=== PATIENT | male | born 1935 | race Caucasian/White ===

== ENCOUNTER → 2016-09-17 | Outpatient (CLI) | payer MEDICARE, OTHER | LOC: MW.CHIM 08:00 | PROVIDERS: ATTEND Internal Medicine | DX: F03.90 Unspecified dementia, unspecified severity, without behavioral disturbance, psychotic disturbance, mood disturbance, and anxiety (principal) | CPT/HCPCS: G0463 ==

== ENCOUNTER → 2016-11-23 | Outpatient (CLI) | payer MEDICARE, OTHER | LOC: MW.CHORTHO 08:00 | PROVIDERS: ATTEND Orthopaedic Surgery | DX: M17.0 Bilateral primary osteoarthritis of knee (principal) | CPT/HCPCS: 20610-50; G0463; J1040 ==

== ENCOUNTER 2020-07-09 14:15 | Emergency (ER) | payer OTHER, MEDICARE ==
[2020-07-09] MEDS ORDERED: Sodium Chloride 0.9% 10 ML Syringe FLUSH PRN (14:23)
[2020-07-09] MEDS ORDERED: Sodium Chloride 0.9% 2.5 ML Syringe FLUSH PRN (14:23)
--- NOTE | 2020-07-09 14:45 | EDM.PDOC ---
ED HPI GENERAL MEDICAL PROBLEM - General Chief Complaint: General Stated Complaint: [facility] Time Seen by Provider: 07/09/20 14:22 Source of Information: Reports: Patient, Family, Old Records History Limitations: Reports: No Limitations - History of Present Illness INITIAL COMMENTS - FREE TEXT/NARRATIVE: This is a very pleasant 84-year-old gentleman with a past medical history of dementia, hyperlipidemia, osteoarthritis, presenting with concern for fatigue and disorientation. He presents with his daughter, directed here by the [facility]. Daughter is concerned that he seems more fatigued than usual for the past 1 to 2 weeks. He does have a history of dementia but the daughter states he seems more confused compared to baseline. She also states he is not been eating or drinking very much and has been sleeping much more than usual. She states that he does not seem to be acting like himself and seems much more tired than he usually is. Daughter denies any history of fever, nausea, vomiting, diarrhea, hematemesis, rectal bleeding, chest pain, shortness of breath, weight loss, night sweats, or history of cancer. No recent medication changes. No history of head trauma. Denies dysuria, urinary frequency, or hematuria. ROS: A 10-point review of systems was negative, except as noted in the HPI (or in the ROS section of this note). Past medical history: Reviewed, no additional pertinent history. Surgical history: Reviewed in system, no additional pertinent history. Social history: Reviewed in system, no additional pertinent history. Family history: Reviewed in system, no additional pertinent history. PHYSICAL EXAM Vital signs reviewed. Nursing notes reviewed. Constitutional: Awake, alert, non-distressed. Head: Normocephalic, atraumatic. Eyes: Pupils 3 mm bilaterally, EOMI, conjunctiva normal, no discharge, no scleral icterus. Ears, Nose, Throat: External ears and nose normal, moist oral mucosa. Cardiovascular: 2+ radial pulses bilaterally, capillary refill less than 2 seconds. Pulmonary: normal work of breathing, no accessory muscle use. Abdomen/GI: Soft, nontender, nondistended, no guarding or rigidity, no masses. Back: Unremarkable, nontender, no CVA tenderness. Musculoskeletal: No deformities. Integumentary: Appropriate color for ethnicity, warm, dry, no pallor or jaundice, no rash. Neurologic: Alert, oriented to person and place but impaired recent memory, normal speech, no facial droop, moving all extremities well. Psychiatric: Appropriate mood and affect. This patient was seen and evaluated during the 2019 SARS-CoV-2 novel coronavirus pandemic period. Community viral transmission is ongoing at time of this encounter and the emergency department is operating under pandemic response procedures. - Related Data Allergies Allergy/AdvReac Type Severity Reaction Status Date / Time ibuprofen Allergy Cannot Verified 07/09/20 14:31 Remember Penicillins Allergy Cannot Verified 07/09/20 14:31 Remember Sulfa (Sulfonamide Allergy Cannot Verified 07/09/20 14:31 Antibiotics) Remember Home Meds: Home Meds Aspirin [Aspirin EC] 81 mg PO DAILY 07/09/20 [History] Cefpodoxime [Vantin] 200 mg PO BID 7 Days #14 tab 07/09/20 [Rx] Cholecalciferol (Vitamin D3) [Vitamin D3] 50 mcg PO DAILY 07/09/20 [History] Donepezil HCl 10 mg PO BEDTIME 07/09/20 [History] Doxazosin [Doxazosin Mesylate] 4 mg PO QPM 07/09/20 [History] Doxycycline Hyclate 100 mg PO BID 7 Days #14 tablet. 07/09/20 [Rx] Latanoprost [Xalatan] 1 drop EYEBOTH BEDTIME 07/09/20 [History] Oxybutynin 2.5 mg PO TID 07/09/20 [History] Vitamin B Complex 1 each PO DAILY 07/09/20 [History] atorvaSTATin [Lipitor] 20 mg PO BEDTIME 07/09/20 [History] ED ROS GENERAL - Review of Systems Review Of Systems: See Below ED EXAM, GENERAL - Physical Exam Exam: See Below #1 Interpretation EKG Interpretation Comments: 12-Lead ECG Interpretation Acquired: 2:43 PM Rhythm: Sinus rhythm Rate: 80 bpm [place]: Normal Intervals: Normal Ectopy: None RV Strain: No obvious RV strain pattern. ST Segments/T-Waves: No notable changes Acute Ischemic Changes: None apparent Interpretation: No STEMI. No prior ECG on file for comparison Course - Vital Signs Text/Narrative:: 84-year-old gentleman presenting with concern for fatigue, poor oral intake, and worsening confusion compared to baseline for 1 to 2 weeks. Differential diagnosis includes but is not limited to: Anemia, electrolyte disturbance, volume depletion, sepsis, pneumonia, subdural hematoma, intracranial hemorrhage, subacute myocardial infarction, thyroid disease, renal insufficiency, and many others. Patient is alert but mildly disoriented to event, mildly impaired recent memory. He displays no gross neurologic deficits at this point. We are planning to obtain labs, twelve-lead EKG, a chest x-ray series, and a noncontrast head CT. At this point he seems hemodynamically stable and looks nontoxic. Twelve-lead EKG looks nonischemic, normal intervals, no ectopy. Head CT negative. CBC shows mild normocytic anemia at 12.6. Metabolic panel shows mild hypokalemia of 3.2. Renal function is normal. Calcium slightly low at 8.2. Total bilirubin is mildly elevated at 1.8, which is actually better than pre vious levels. Troponin is negative. TSH is within normal limits. Albumin slightly low at 3.1. COVID-19 testing is positive. 2 view x-ray series shows a questionable airspace opacity in the peripheral right upper lobe likely representing an infiltrate, otherwise hyperinflation and chronic interstitial changes. Patient does not look systemically ill or toxic or septic. His oxygen levels are normal and he has no tachypnea, shortness of breath, or evidence of respiratory compromise. He does not look dehydrated or volume depleted, his head CT imaging is negative. There is no objective evidence of thyroid disease or myocardial ischemia. I believe his presentation is due to COVID-19 infection. There is some concern for possible superimposed pneumonia given his x-ray findings. I did discuss with the daughter treating with antibiotics, given his advanced age, history of dementia, and the fact that he lives in an assisted living facility. She is in agreement with the plan to conservatively treat with antibiotics. We will have him follow-up with his primary medical doctor in about a week for reevaluation including repeat potassium testing. We will give the daughter and the patient a handout with food suggestions to help address the hypokalemia. Plan: Patient is stable to discharge home with outpatient primary care clinic follow-up. Strict emergency department return precautions were provided, patient's daughter/power of criminal attorney indicated understanding. All questions were answered prior to departure. Discharged in good condition. Last Recorded V/S: Last Vital Signs Temp 36.9 C 07/09/20 14:44 Pulse 79 07/09/20 15:50 Resp 16 07/09/20 15:50 BP 121/80 07/09/20 15:50 Pulse Ox 97 07/09/20 15:50 - Orders/Labs/Meds Orders: Active Orders 24 hr Category Date Time Status EKG Documentation Completion [RC] STAT Care 07/09/20 14:23 Active Pulse Oximetry [RC] ASDIRECTED Care 07/09/20 14:23 Active Sodium Chloride 0.9% [Saline Flush] Med 07/09/20 14:23 Active 10 ml FLUSH ASDIRECTED PRN Sodium Chloride 0.9% [Saline Flush] Med 07/09/20 14:23 Active 2.5 ml FLUSH ASDIRECTED PRN Saline Lock Insert [OM.PC] Stat Oth 07/09/20 14:23 Ordered Medication Orders Sodium Chloride (Saline Flush) 10 ml FLUSH ASDIRECTED PRN PRN Reason: Keep Vein Open Sodium Chloride (Saline Flush) 2.5 ml FLUSH ASDIRECTED PRN PRN Reason: Keep Vein Open Labs: Laboratory Tests 07/09/20 07/09/20 07/09/20 Range/Units 14:50 14:55 14:55 WBC 6.73 (4.0-11.0) K/uL RBC 3.90 L (4.50-5.90) M/uL Hgb 12.6 L (13.0-17.0) g/dL Hct 37.0 L (38.0-50.0) % MCV 94.9 (80.0-98.0) fL MCH 32.3 H (27.0-32.0) pg MCHC 34.1 (31.0-37.0) g/dL RDW Std Deviation 39.7 (28.0-62.0) fl RDW Coeff of Jay 12 (11.0-15.0) % Plt Count 186 (150-400) K/uL MPV 10.10 (7.40-12.00) fL Neut % (Auto) 72.0 (48.0-80.0) % Lymph % (Auto) 17.1 (16.0-40.0) % Hunt % (Auto) 10.1 (0.0-15.0) % Eos % (Auto) 0.7 (0.0-7.0) % Baso % (Auto) 0.1 (0.0-1.5) % Neut # (Auto) 4.8 (1.4-5.7) K/uL Lymph # (Auto) 1.2 (0.6-2.4) K/uL Hunt # (Auto) 0.7 (0.0-0.8) K/uL Eos # (Auto) 0.1 (0.0-0.7) K/uL Baso # (Auto) 0.0 (0.0-0.1) K/uL Nucleated RBC % 0.0 /100WBC Nucleated RBCs # 0 K/uL Sodium 142 (136-148) mmol/L Potassium 3.2 L (3.5-5.1) mmol/L Chloride 106 (98-107) mmol/L Carbon Dioxide 26.8 (21.0-32.0) mmol/L BUN 16 (7.0-18.0) mg/dL Creatinine 0.8 (0.8-1.3) mg/dL Est Cr Clr Drug Dosing 75.44 mL/min Estimated GFR (MDRD) > 60.0 ml/min Glucose 125 H (74-106) mg/dL Calcium 8.2 L (8.5-10.1) mg/dL Total Bilirubin 1.8 H (0.2-1.0) mg/dL AST 18 (15-37) IU/L ALT 16 (14-63) IU/L Alkaline Phosphatase 108 (46-116) U/L Troponin I < 0.050 (0.000-0.056) ng/mL Total Protein 6.0 L (6.4-8.2) g/dL Albumin 3.1 L (3.4-5.0) g/dL Globulin 2.9 (2.6-4.0) g/dL Albumin/Globulin Ratio 1.1 (0.9-1.6) TSH 3rd Generation 1.01 (0.36-3.74) uIU/mL SARS-CoV-2 RNA (EZEQUIEL) POSITIVE H (NEGATIVE) Meds: Medications Generic Name Dose Route Start Last Admin Trade Name Freq PRN Reason Stop Dose Admin Sodium Chloride 10 ml 07/09/20 14:23 Saline Flush FLUSH ASDIRECTED PRN Keep Vein Open Sodium Chloride 2.5 ml 07/09/20 14:23 Saline Flush FLUSH ASDIRECTED PRN Keep Vein Open Departure - Departure Time of Disposition: 16:12 Disposition: Home, Self-Care 01 Condition: Good Clinical Impression: COVID-19 virus infection, Hypokalemia Pneumonia Qualifiers: Pneumonia type: due to unspecified organism Laterality: right Lung location: upper lobe of lung Qualified Code(s): J18.9 - Pneumonia, unspecified organism - Discharge Information *PRESCRIPTION DRUG MONITORING PROGRAM REVIEWED*: Not Applicable *COPY OF PRESCRIPTION DRUG MONITORING REPORT IN PATIENT NGUYỄN: Not Applicable Prescriptions: Doxycycline Hyclate 100 mg PO BID 7 Days #14 tablet. Cefpodoxime [Vantin] 200 mg PO BID 7 Days #14 tab Instructions: COVID-19 Frequently Asked Questions, COVID-19, Hypokalemia, COVID-19: How to Protect Yourself and Others - CDC, Potassium Content of Foods Referrals: PCP,None [Primary Care Provider] - Forms: ED Department Discharge Additional Instructions: Your father was seen in the emergency department for fatigue, weakness, and poor food and drink intake. He tested positive for COVID-19 infection. His potassium level is also slightly low, we are going to give you a handout with some food recommendations to help raise his potassium level. There was some concern for possible bacterial pneumonia as well based on the x- rays. Given your father's age and dementia, I think it would be safest to treat him with antibiotics. I would have him follow-up with his primary doctor at the [facility] for reevaluation in about 1 week to be sure that he is doing better, and to have his potassium level rechecked. Your COVID-19 test was positive. You need to stay home from work or school and isolate from others as much as possible. You need to wear a mask or face covering and you should cover your cough or sneeze. Wash your hands frequently. Try to isolate yourself from family members or others as much as you can. You may develop new symptoms such as a headache, sore throat, cough, sneezing, nasal congestion or drainage, chest congestion, nausea, vomiting, diarrhea, body aches, or chills. These are not unusual. Recommendations from the Centers for Disease Control (CDC) are that you should isolate at home for at least 10 days from the start of your symptoms. When your symptoms are improving for a period of 24 hours and you have no fever (without the use of fever reducing medications like acetaminophen or ibuprofen), you may discontinue isolation and go back to work/school. If you are still feeling unwell at the end of the 10-day period, you should continue to isolate until you have been feeling better for 24 hours. Anyone that lives with you or anyone that has been in close contact (within 6 feet for 15 total minutes) recently (3-4 days before your symptoms started) needs to be tested for COVID. You can take any standard cjhi-uqf-koybjvo medications for cold or flu type symptoms including fever reducing medications (acetaminophen or ibuprofen), cough medications (Robitussin, cough drops or lozenges), or medications like TheraFlu or DayQuil/NyQuil. Be sure you are drinking plenty of fluids. If you are still feeling sick beyond 10-14 days after the onset of your symptoms I would recommend contacting your primary medical doctor's office for further guidance. Warning signs to come back to the emergency department include shortness of breath, chest pain, lightheadedness, loss of consciousness, if you are unable to swallow or handle drinking fluids, or if you have any other new and concerning symptoms. Thank you for choosing the [facility] emergency department in [place] for your medical needs today. It was a pleasure caring for you. The following information is given to patients seen in the emergency department who are being discharged. This information is to outline your options for follow-up care. We provide all patients seen in our emergency department with a follow-up referral. The need for follow-up, as well as the timing and circumstances, are variable depending upon the specifics of your emergency department visit. If you don't have a primary care physician on staff, we will provide you with a referral. We always advise you to contact your personal physician following an emergency department visit to inform them of the circumstance of the visit and for follow-up with them and/or the need for any referrals to a consulting specialist. The emergency department will also refer you to a specialist when appropriate. This referral assures that you have the opportunity for follow-up care with a specialist. All of these measure are taken in an effort to provide you with optimal care, which includes your follow-up. Under all circumstances we always encourage you to contact your private physician who remains a resource for coordinating your care. When calling for follow-up care, please make the office aware that this follow-up is from your recent emergency room visit. If for any reason you are refused follow-up, please contact the [facility] Emergency Department at and asked to speak to the emergency department charge nurse. If you do not have a primary care physician that is caring for you, you can contact these clinics below to set up an appointment to establish care: [facility] - Primary Care [address] [place], [place] [id number] [place] [address] Sepsis Event Note (ED) - Evaluation Sepsis Screening Result: No Definite Risk - Focused Exam Vital Signs: Vital Signs Temp Temp Pulse Resp BP Pulse Ox 07/09/20 15:50 79 16 121/80 97 07/09/20 14:44 36.9 C 07/09/20 14:31 35.5 C L 81 18 119/87 94 L - My Orders Last 24 Hours: My Active Orders 07/09/20 14:23 EKG Documentation Completion [RC] STAT Pulse Oximetry [RC] ASDIRECTED Sodium Chloride 0.9% [Saline Flush] 10 ml FLUSH ASDIRECTED PRN Sodium Chloride 0.9% [Saline Flush] 2.5 ml FLUSH ASDIRECTED PRN Saline Lock Insert [OM.PC] Stat - Assessment/Plan Last 24 Hours: My Active Orders 07/09/20 14:23 EKG Documentation Completion [RC] STAT Pulse Oximetry [RC] ASDIRECTED Sodium Chloride 0.9% [Saline Flush] 10 ml FLUSH ASDIRECTED PRN Sodium Chloride 0.9% [Saline Flush] 2.5 ml FLUSH ASDIRECTED PRN Saline Lock Insert [OM.PC] Stat
[2020-07-09 15:39] LABS: BLOOD UREA NITROGEN,BUN 16 mg/dL (7.0-18.0); CARBON DIOXIDE,CO2 26.8 mmol/L (21.0-32.0); CHLORIDE,CL 106 mmol/L (98-107); GLUCOSE RANDOM 125 mg/dL (74-106); POTASSIUM,K 3.2 mmol/L (3.5-5.1); SODIUM,NA 142 mmol/L (136-148)
--- NOTE | 2020-07-09 15:43 | CT ---
Indication: Disorientation, loss of appetite history of dementia Technique: Volumetric multidetector CT images of the head were obtained without the administration of low osmolar intravenous contrast. Comparison: None available Findings: There is no intra-axial or extra-axial fluid collection. There is no mass effect or midline shift. There is moderate age-related cortical atrophy with sulcal widening and ex vacuo dilatation of the lateral ventricles. There are chronic small vessel disease changes in the subcortical and periventricular white matter without lost green-white differentiation. The orbits and their contents are grossly within normal limits. The bony calvarium is grossly intact. There is minimal mucosal thickening within the paranasal sinuses. The mastoid air cells are well aerated. Impression: Age related changes of the brain without acute intracranial abnormality. Please note that all CT scans at this facility use dose modulation, iterative reconstruction, and/or weight-based dosing when appropriate to reduce radiation dose to as low as reasonably achievable. Dictated by Duke Julio MD @ Jul 09 2020 3:28PM Signed by Dr. Duke Julio @ Jul 09 2020 3:41PM
--- NOTE | 2020-07-09 15:58 | CR ---
Indication: Fatigue and disorientation Comparison: None available. Technique: PA and Lateral views chest Findings: There is hyperinflation and chronic interstitial change with questionable airspace opacity within the peripheral right upper lobe which may represent developing infiltrate. Cardiac silhouette is mildly prominent. The bony thorax is grossly intact. Impression: Hyperinflation and chronic interstitial changes with questionable airspace opacity in the peripheral right upper lobe likely representing infiltrate. Dictated by Duke Julio MD @ Jul 09 2020 3:55PM Signed by Dr. Duke Julio @ Jul 09 2020 3:57PM
== END 2020-07-09 16:33 | disposition home or self-care (01) ==
LOC: MW.ED 14:15
DX: U07.1 COVID-19 (principal); J12.89 Other viral pneumonia; E87.6 Hypokalemia; E78.5 Hyperlipidemia, unspecified; M19.90 Unspecified osteoarthritis, unspecified site; F03.90 Unspecified dementia, unspecified severity, without behavioral disturbance, psychotic disturbance, mood disturbance, and anxiety; Z88.6 Allergy status to analgesic agent; Z88.0 Allergy status to penicillin; Z88.2 Allergy status to sulfonamides; Z79.82 Long term (current) use of aspirin; Z79.899 Other long term (current) drug therapy
CPT/HCPCS: 36415; 70450; 70450-26; 71046; 71046-26; 80053; 84443; 84484; 85025; 93005; 99285-25; U0002

== ENCOUNTER 2021-06-11 09:34 | Emergency (ER) | payer OTHER, MEDICARE ==
[2021-06-11] MEDS ORDERED: Sodium Chloride 0.9% 10 ML Syringe FLUSH PRN (09:58)
[2021-06-11] MEDS ORDERED: Sodium Chloride 0.9% 2.5 ML Syringe FLUSH PRN (09:58)
[2021-06-11 10:30] LABS: BLOOD UREA NITROGEN,BUN 15 mg/dL (7.0-18.0); CARBON DIOXIDE,CO2 25.1 mmol/L (21.0-32.0); CHLORIDE,CL 106 mmol/L (98-107); GLUCOSE RANDOM 135 mg/dL (74-106); POTASSIUM,K 3.7 mmol/L (3.5-5.1); SODIUM,NA 142 mmol/L (136-148)
--- NOTE | 2021-06-11 11:09 | CR ---
Indication: Shortness of breath Comparison: Two-view chest July 09, 2020 Technique: Single AP view chest Findings: There is hyperinflation and chronic interstitial change. There is no focal consolidation, effusion, or pneumothorax. The cardiac silhouette is mildly prominent, similar to previous exam. The bony thorax is grossly intact. Impression: Hyperinflation and chronic interstitial changes without evidence of dense consolidation. Dictated by Duke Julio MD @ 06/11/2021 11:07:58 AM (Electronically Signed)
== END 2021-06-11 12:05 | disposition home or self-care (01) ==
LOC: MW.ED 09:34
DX: F03.90 Unspecified dementia, unspecified severity, without behavioral disturbance, psychotic disturbance, mood disturbance, and anxiety (principal); R41.0 Disorientation, unspecified; R06.02 Shortness of breath; E78.00 Pure hypercholesterolemia, unspecified; M19.90 Unspecified osteoarthritis, unspecified site; N40.0 Benign prostatic hyperplasia without lower urinary tract symptoms; Z88.0 Allergy status to penicillin; Z88.2 Allergy status to sulfonamides; Z88.8 Allergy status to other drugs, medicaments and biological substances; Z79.82 Long term (current) use of aspirin; Z79.899 Other long term (current) drug therapy; Z20.822 Contact with and (suspected) exposure to COVID-19
CPT/HCPCS: 36415; 71045; 71045-26; 80053; 81003; 84484; 85025; 93005; 99285-25; U0002

== ENCOUNTER 2021-07-12 19:05 | Emergency (ER) | payer OTHER, MEDICARE ==
[2021-07-12] MEDS ORDERED: Sodium Chloride 0.9% 1,000 ML IV ONE (19:30)
[2021-07-12] MEDS ORDERED: Ondansetron 4 MG/2 ML SDV IVPUSH ONE (19:30)
[2021-07-12] MEDS ORDERED: Sodium Chloride 0.9% 2.5 ML Syringe FLUSH PRN (19:30)
[2021-07-12] MEDS ORDERED: Sodium Chloride 0.9% 10 ML Syringe FLUSH PRN (19:30)
[2021-07-12 20:09] LABS: BLOOD UREA NITROGEN,BUN 34 mg/dL (7.0-18.0); CARBON DIOXIDE,CO2 25.7 mmol/L (21.0-32.0); CHLORIDE,CL 104 mmol/L (98-107); GLUCOSE RANDOM 109 mg/dL (74-106); POTASSIUM,K 3.8 mmol/L (3.5-5.1); SODIUM,NA 143 mmol/L (136-148)
[2021-07-12 20:24] LABS: CORONAVIRUS COVID-19 NAA NEGATIVE (NEGATIVE); INFLUENZA A NAA NEGATIVE (NEGATIVE); INFLUENZA B NAA NEGATIVE (NEGATIVE)
--- NOTE | 2021-07-12 20:25 | CR ---
INDICATION: Fall. TECHNIQUE: Portable AP chest. COMPARISON: 06/11/2021. FINDINGS: Shallow inspiration with mild basilar atelectasis. Lungs otherwise clear. No pneumothorax. Heart size and pulmonary vascularity are normal given technique. IMPRESSION: No acute chest findings. Dictated by Anil Aggarwal MD @ 07/12/2021 8:23:03 PM (Electronically Signed)
--- NOTE | 2021-07-12 20:29 | CT ---
INDICATION: Fall TECHNIQUE: Head CT without contrast. COMPARISON: 07/09/[address] FINDINGS: CSF spaces: Within normal limits for age. Brain parenchyma and extra-axial spaces: There are nonspecific low attenuation white matter changes consistent with chronic microvascular disease. No sign of mass, hemorrhage, or midline shift. Skull base and calvarium: The visualized paranasal sinuses and mastoid air cells demonstrate no acute or significant findings. The visualized orbits are grossly unremarkable. No skull fractures. IMPRESSION: No acute intracranial findings. Please note that all CT scans at this facility use dose modulation, iterative reconstruction, and/or weight-based dosing when appropriate to reduce radiation dose to as low as reasonably achievable. Dictated by Anil Aggarwal MD @ 07/12/2021 8:27:32 PM (Electronically Signed)
--- NOTE | 2021-07-12 20:33 | CT ---
INDICATION: Fall. TECHNIQUE: Noncontrast CT cervical spine. FINDINGS: No acute cervical spine fracture, dislocation, or prevertebral soft tissue swelling. Advanced spondylosis throughout the cervical spine with multilevel disc space narrowing and large fused anterior osteophytes compatible with DISH. Mild scattered canal and foraminal narrowing. No high-grade canal stenosis. Advanced facet arthrosis, particularly on the right. IMPRESSION: 1. No acute cervical spine findings. 2. Findings compatible with DISH. Please note that all CT scans at this facility use dose modulation, iterative reconstruction, and/or weight-based dosing when appropriate to reduce radiation dose to as low as reasonably achievable. Dictated by Anil Aggarwal MD @ 07/12/2021 8:32:45 PM (Electronically Signed)
--- NOTE | 2021-07-12 20:46 | CT ---
INDICATION: Fall with hip pain. TECHNIQUE: CT abdomen and pelvis without contrast. COMPARISON: None. FINDINGS: Lower chest: Unremarkable. Liver: Normal in size and attenuation. No suspicious masses. Gallbladder and bile ducts: There is inflammation surrounding the gallbladder which is mildly distended. No definite stones. No biliary dilatation. Pancreas: Unremarkable. No mass or inflammation. Spleen: Normal in size. No masses. Adrenal glands: Normal in size. No nodules. Kidneys: Normal in size. No suspicious masses, stones, or hydronephrosis. GI tract: Unremarkable. Normal in caliber. No sign of mass or inflammation. Normal appendix. Vasculature: Unremarkable. Lymph nodes: No lymphadenopathy. Abdominal wall/Omentum/Peritoneum: Unremarkable. No sign of mass or infiltration. No free air or significant free fluid. Pelvis: Prostate gland is enlarged. Unremarkable urinary bladder. Bones: Acute nondisplaced fracture present in the subcapital region of the right femoral neck. No significant hematoma associated with the fracture. No other significant osseous abnormality. IMPRESSION: 1. Acute nondisplaced fracture in the right femoral neck. 2. Inflammation surrounding the gallbladder suggesting acute cholecystitis. 3. Prostate gland hypertrophy. Please note that all CT scans at this facility use dose modulation, iterative reconstruction, and/or weight-based dosing when appropriate to reduce radiation dose to as low as reasonably achievable. Dictated by Nick Blanco MD @ 07/12/2021 8:45:52 PM (Electronically Signed)
--- NOTE | 2021-07-12 21:19 | EDM.PDOC ---
ED HPI GENERAL MEDICAL PROBLEM - General Chief Complaint: General Stated Complaint: EMS Time Seen by Provider: 07/12/21 19:14 - History of Present Illness INITIAL COMMENTS - FREE TEXT/NARRATIVE: HISTORY AND PHYSICAL: History of present illness: This is an 85-year-old gentleman who presents ER today by EMS after being found on his floor by caregiver who is bringing in his food. Patient lives in assisted living facility. Patient has baseline dementia/sundowners. History is somewhat limited secondary to the patient's dementia. Patient denies any recent fevers, shakes, chills, nausea, vomiting, diarrhea. Patient denies any dysuria, frequency, urgency. Patient denies any abdominal pain or discomfort. Patient does complain of some pain to his right and left hips. Patient denies any head trauma, head injury or loss of consciousness although his daughter reports that his history is relatively unreliable secondary to his dementia. Patient's daughter reports that he is fairly independent at the assisted living facility. She reports that he is self-care but does have some mild dementia. Review of systems: As per history of present illness and below otherwise all systems reviewed and negative. Past medical history: As per history of present illness and as reviewed below otherwise noncontributory. Surgical history: As per history of present illness and as reviewed below otherwise noncontributory. Social history: No reported history of drug abuse. Family history: As per history of present illness and as reviewed below otherwise noncontributory. Physical exam: This patient was seen and evaluated during the 2019 SARS-CoV-2 novel coronavirus pandemic period. Community viral transmission is ongoing at time of this encounter and the emergency department is operating under pandemic response proc edures. Constitutional: Patient is oriented to person, place, and time. Appears well- developed and well-nourished. No distress. HEENT: Moist mucous membranes Head: Normocephalic and atraumatic Eyes: Right eye exhibits no discharge. Left eye exhibits no discharge. No scleral icterus Neck: Normal range of motion. No tracheal deviation present. Cardiovascular: Normal rate and regular rhythm. Pulmonary: Effort normal, no respiratory distress. Abd: Soft, nondistended, no rebound/guarding, no psoas or obturator signs, no tenderness at Mcberney's point, no Stevens's sign. Pt does not present with an exam that would be consistent with an acute surgical abdomen at this time. Mild tenderness to palpation to his right upper quadrant. Musculoskeletal: Normal range of motion Neurologic: Alert and oriented to person, place and time. Skin: Christie, warm and dry. Psychiatric: Normal mood and affect. Behavior is normal. Judgment and thought content normal. Nursing note and vital signs have been reviewed Patient has no C-spine T-spine or L-spine tenderness to palpation. Patient has no left upper or right upper quadrant tenderness to palpation. Patient has no crepitus to palpation to the anterior chest wall. Patient is neurologically intact. Patient does not present with any signs or or symptoms that would be consistent with acute intracranial, intra-abdominal, intrathoracic, or long bone injury. All long bones have been palpated and range of motion been performed and there is no evidence of any acute pathology. Patient does have tenderness to palpation to his left and right hip and increased pain with flexion of his right hip. Diagnostics: CT scan of the abdomen pelvis reveals inflammation surrounding the gallbladder which is mildly distended which could be consistent with acute cholecystitis. There is no definite stone or bili dilatation noted. Patient's labs are significant for an elevated bilirubin of 4.1 and a slightly elevated alk phos. Patient's ALT and AST are slightly elevated as well. Patient has a white count of 16,000. Patient's vital signs are all within normal limits. CT scan of the head and cervical spine revealed no acute pathology. EKG July 12, 2021 at 7:17 PM EKG: As interpreted by ER physician: Neri: Nonspecific ST-T wave abnormalities Normal axis No evidence of ST elevation TX Normal sinus rhythm heart rate of 90 with occasional PACs Therapeutics: [] Assessment and plan: 85-year-old gentleman who presents ER today secondary to acute cholecystitis as well as a hip fracture after a fall. I have discussed the case with Dr. Woodruff who feels that the patient would be best served with transfer to a higher level of care given his multiple comorbidities, the elevated bilirubin, the femur fracture. Case discussed with [facility]: No availability to accept transfer. Case discussed with Gage Garcia: No availability to accept patient for transfer. Case discussed with Tom Garcia: They do have capability to accept patient for transfer. I discussed the case with from orthopedics there and he feels comfortable that he will be able to manage the patient's femur fracture at the facility. I have also discussed the case with Dr. Schultz the hospitalist who has accepted the patient for transfer. Patient will receive Levaquin and Flagyl IV secondary to the acute cholecystitis. Patient received 1 L of NSS in the ED with significant improvement in his mentation and his confusion. I have taken care of this patient before and at this time, his mentation appears to be at its baseline. Patient's daughter is at bedside and she also confirms that his mentation currently is at his baseline. Definitive disposition and diagnosis as appropriate pending reevaluation and review of above. - Related Data Allergies Allergy/AdvReac Type Severity Reaction Status Date / Time ibuprofen Allergy Cannot Verified 07/12/21 19:15 Remember Penicillins Allergy Cannot Verified 07/12/21 19:15 Remember Sulfa (Sulfonamide Allergy Cannot Verified 07/12/21 19:15 Antibiotics) Remember Home Meds: Home Meds Aspirin [Aspirin EC] 81 mg PO DAILY 07/09/20 [History] Cholecalciferol (Vitamin D3) [Vitamin D3] 50 mcg PO DAILY 07/09/20 [History] Donepezil HCl 10 mg PO BEDTIME 07/09/20 [History] Doxazosin [Doxazosin Mesylate] 4 mg PO QPM 07/09/20 [History] Oxybutynin 2.5 mg PO TID 07/09/20 [History] atorvaSTATin [Lipitor] 20 mg PO BEDTIME 07/09/20 [History] Past Medical History HEENT History: Reports: Cataract, Hard of Hearing, Impaired Vision Cardiovascular History: Reports: High Cholesterol Genitourinary History: Reports: BPH Musculoskeletal History: Reports: Osteoarthritis Neurological History: Reports: Alzheimers Disease Other Neuro History: per daughter, has "sun-downing" Psychiatric History: Reports: Alzheimers Disease, Dementia Social & Family History - Family History Family Medical History: No Pertinent Family History - Tobacco Use Tobacco Use Status *Q: Unknown Ever Used Tobacco - Caffeine Use Caffeine Use: Reports: None - Recreational Drug Use Recreational Drug Use: No ED ROS GENERAL - Review of Systems Review Of Systems: See Below ED EXAM, GENERAL - Physical Exam Exam: See Below Course - Vital Signs Last Recorded V/S: Last Vital Signs Temp 98.1 F 07/12/21 19:16 Pulse 88 07/12/21 22:26 Resp 18 07/12/21 22:26 BP 123/61 07/12/21 22:26 Pulse Ox 95 07/12/21 22:26 - Orders/Labs/Meds Orders: Active Orders 24 hr Category Date Time Status Abdomen Ltd [US] Stat Exams 07/12/21 21:07 Taken Levofloxacin/Dextrose 5%-Water [Levaquin in D5W 750 MG/ Med 07/12/21 22:10 Active 150 ML] 750 mg Premix Bag 1 bag IV ONETIME Sodium Chloride 0.9% [Saline Flush] Med 07/12/21 19:30 Active 10 ml FLUSH ASDIRECTED PRN Sodium Chloride 0.9% [Saline Flush] Med 07/12/21 19:30 Active 2.5 ml FLUSH ASDIRECTED PRN metroNIDAZOLE/Normal Saline [Flagyl in NS 500 MG/100 ML Med 07/12/21 22:10 Active ] 500 mg Premix Bag 1 bag IV ONETIME Saline Lock Insert [OM.PC] Stat Oth 07/12/21 19:30 Ordered Medication Orders Levofloxacin/Dextrose 750 mg/ (Premix) 150 mls @ 100 mls/hr IV ONETIME ONE Stop: 07/12/21 23:39 Metronidazole 500 mg/ Premix 100 mls @ 100 mls/hr IV ONETIME ONE Stop: 07/12/21 23:09 Sodium Chloride (Sodium Chloride 0.9% 10 Ml Syringe) 10 ml FLUSH ASDIRECTED PRN PRN Reason: Keep Vein Open Last Admin: 07/12/21 19:44 Dose: 10 ml Documented by: SINGH Sodium Chloride (Sodium Chloride 0.9% 2.5 Ml Syringe) 2.5 ml FLUSH ASDIRECTED PRN PRN Reason: Keep Vein Open Last Admin: 07/12/21 19:44 Dose: 2.5 ml Documented by: SINGH Labs: Laboratory Tests 07/12/21 07/12/21 07/12/21 Range/Units 19:35 19:35 19:35 WBC 16.86 H (4.0-11.0) K/uL RBC 3.93 L (4.50-5.90) M/uL Hgb 12.8 L (13.0-17.0) g/dL Hct 37.3 L (38.0-50.0) % MCV 94.9 (80.0-98.0) fL MCH 32.6 H (27.0-32.0) pg MCHC 34.3 (31.0-37.0) g/dL RDW Std Deviation 42.0 (28.0-62.0) fl RDW Coeff of Jay 12 (11.0-15.0) % Plt Count 214 (150-400) K/uL MPV 10.70 (7.40-12.00) fL Neut % (Auto) 87.0 H (48.0-80.0) % Lymph % (Auto) 3.7 L (16.0-40.0) % [place] % (Auto) 9.0 (0.0-15.0) % Eos % (Auto) 0.2 (0.0-7.0) % Baso % (Auto) 0.1 (0.0-1.5) % Neut # (Auto) 14.7 H (1.4-5.7) K/uL Lymph # (Auto) 0.6 (0.6-2.4) K/uL [place] # (Auto) 1.5 H (0.0-0.8) K/uL Eos # (Auto) 0.0 (0.0-0.7) K/uL Baso # (Auto) 0.0 (0.0-0.1) K/uL Nucleated RBC % 0.0 /100WBC Nucleated RBCs # 0 K/uL Sodium 143 (136-148) mmol/L Potassium 3.8 (3.5-5.1) mmol/L Chloride 104 (98-107) mmol/L Carbon Dioxide 25.7 (21.0-32.0) mmol/L BUN 34 H (7.0-18.0) mg/dL Creatinine 1.1 (0.8-1.3) mg/dL Est Cr Clr Drug Dosing 55.49 mL/min Estimated GFR (MDRD) > 60.0 ml/min Glucose 109 H (74-106) mg/dL Calcium 8.5 (8.5-10.1) mg/dL Magnesium 2.0 (1.8-2.4) mg/dL Total Bilirubin 4.1 H (0.2-1.0) mg/dL AST 90 H (15-37) IU/L ALT 59 (14-63) IU/L Alkaline Phosphatase 131 H (46-116) U/L Total Protein 6.4 (6.4-8.2) g/dL Albumin 2.8 L (3.4-5.0) g/dL Globulin 3.6 (2.6-4.0) g/dL Albumin/Globulin Ratio 0.8 L (0.9-1.6) Urine Color Urine Appearance Urine pH (5.0-8.0) Ur Specific [place] (1.001-1.035) Urine Protein (NEGATIVE) mg/dL Urine Glucose (UA) (NEGATIVE) mg/dL Urine Ketones (NEGATIVE) mg/dL Urine Occult Blood (NEGATIVE) Urine Nitrite (NEGATIVE) Urine Bilirubin (NEGATIVE) Urine Urobilinogen (<2.0) EU/dL Ur Leukocyte Esterase (NEGATIVE) U Hyaline Cast (Auto) (0-2/LPF) Urine RBC (0-2/HPF) Urine WBC (0-5/HPF) Ur Epithelial Cells (NONE-FEW) Urine Bacteria (NEGATIVE) Influenza Type A RNA NEGATIVE (NEGATIVE) Influenza Type B RNA NEGATIVE (NEGATIVE) SARS-CoV-2 RNA (EZEQUIEL) NEGATIVE (NEGATIVE) 07/12/21 Range/Units 21:22 WBC (4.0-11.0) K/uL RBC (4.50-5.90) M/uL Hgb (13.0-17.0) g/dL Hct (38.0-50.0) % MCV (80.0-98.0) fL MCH (27.0-32.0) pg MCHC (31.0-37.0) g/dL RDW Std Deviation (28.0-62.0) fl RDW Coeff of Jay (11.0-15.0) % Plt Count (150-400) K/uL MPV (7.40-12.00) fL Neut % (Auto) (48.0-80.0) % Lymph % (Auto) (16.0-40.0) % [place] % (Auto) (0.0-15.0) % Eos % (Auto) (0.0-7.0) % Baso % (Auto) (0.0-1.5) % Neut # (Auto) (1.4-5.7) K/uL Lymph # (Auto) (0.6-2.4) K/uL [place] # (Auto) (0.0-0.8) K/uL Eos # (Auto) (0.0-0.7) K/uL Baso # (Auto) (0.0-0.1) K/uL Nucleated RBC % /100WBC Nucleated RBCs # K/uL Sodium (136-148) mmol/L Potassium (3.5-5.1) mmol/L Chloride (98-107) mmol/L Carbon Dioxide (21.0-32.0) mmol/L BUN (7.0-18.0) mg/dL Creatinine (0.8-1.3) mg/dL Est Cr Clr Drug Dosing mL/min Estimated GFR (MDRD) ml/min Glucose (74-106) mg/dL Calcium (8.5-10.1) mg/dL Magnesium (1.8-2.4) mg/dL Total Bilirubin (0.2-1.0) mg/dL AST (15-37) IU/L ALT (14-63) IU/L Alkaline Phosphatase (46-116) U/L Total Protein (6.4-8.2) g/dL Albumin (3.4-5.0) g/dL Globulin (2.6-4.0) g/dL Albumin/Globulin Ratio (0.9-1.6) Urine Color YELLOW Urine Appearance SLT CLOUDY Urine pH 5.5 (5.0-8.0) Ur Specific [place] 1.025 (1.001-1.035) Urine Protein 100 H (NEGATIVE) mg/dL Urine Glucose (UA) NEGATIVE (NEGATIVE) mg/dL Urine Ketones 40 H (NEGATIVE) mg/dL Urine Occult Blood MODERATE H (NEGATIVE) Urine Nitrite NEGATIVE (NEGATIVE) Urine Bilirubin SMALL H (NEGATIVE) Urine Urobilinogen 4.0 H (<2.0) EU/dL Ur Leukocyte Esterase NEGATIVE (NEGATIVE) U Hyaline Cast (Auto) 0-2 (0-2/LPF) Urine RBC 0-2 (0-2/HPF) Urine WBC 0-1 (0-5/HPF) Ur Epithelial Cells OCCASIONAL (NONE-FEW) Urine Bacteria FEW (NEGATIVE) Influenza Type A RNA (NEGATIVE) Influenza Type B RNA (NEGATIVE) SARS-CoV-2 RNA (EZEQUIEL) (NEGATIVE) Meds: Medications Generic Name Dose Route Start Last Admin Trade Name Freq PRN Reason Stop Dose Admin Levofloxacin/Dextrose 750 mg/ 150 mls @ 100 mls/hr 07/12/21 22:10 Premix IV 07/12/21 23:39 ONETIME ONE Metronidazole 500 mg/ Premix 100 mls @ 100 mls/hr 07/12/21 22:10 IV 07/12/21 23:09 ONETIME ONE Sodium Chloride 10 ml 07/12/21 19:30 07/12/21 19:44 Sodium Chloride 0.9% 10 Ml Syringe FLUSH 10 ml ASDIRECTED PRN Administration Keep Vein Open Sodium Chloride 2.5 ml 07/12/21 19:30 07/12/21 19:44 Sodium Chloride 0.9% 2.5 Ml Syringe FLUSH 2.5 ml ASDIRECTED PRN Administration Keep Vein Open Discontinued Medications Generic Name Dose Route Start Last Admin Trade Name Skyler PRN Reason Stop Dose Admin Sodium Chloride 1,000 mls @ 999 mls/hr 07/12/21 19:30 07/12/21 19:44 Normal Saline IV 07/12/21 20:30 999 mls/hr .Bolus ONE Administration Ondansetron HCl 4 mg 07/12/21 19:30 07/12/21 19:44 Ondansetron 4 Mg/2 Ml Sdv IVPUSH 07/12/21 19:31 4 mg ONETIME ONE Administration Departure - Departure Time of Disposition: 22:38 Disposition: DC/Tfer to Acute Hospital 02 Condition: Good Clinical Impression: Acute cholecystitis, Fall in elderly patient, Fracture of neck of right femur Dementia Qualifiers: Dementia type: unspecified type Dementia behavioral disturbance: without behavioral disturbance Qualified Code(s): F03.90 - Unspecified dementia without behavioral disturbance - Discharge Information Referrals: Yousif Mccray [employer] [Primary Care Provider] - Forms: ED Department Discharge Sepsis Event Note (ED) - Evaluation Sepsis Screening Result: No Definite Risk - Focused Exam Vital Signs: Vital Signs Temp Pulse Resp BP Pulse Ox 07/12/21 22:26 88 18 123/61 95 07/12/21 21:24 89 18 133/62 97 07/12/21 19:16 98.1 F 94 20 115/56 L 93 L - My Orders Last 24 Hours: My Active Orders 07/12/21 19:30 Sodium Chloride 0.9% [Saline Flush] 10 ml FLUSH ASDIRECTED PRN Sodium Chloride 0.9% [Saline Flush] 2.5 ml FLUSH ASDIRECTED PRN Saline Lock Insert [OM.PC] Stat 07/12/21 21:07 Abdomen Ltd [US] Stat 07/12/21 22:10 Levofloxacin/Dextrose 5%-Water [Levaquin in D5W 750 MG/150 ML] 750 mg Premix Bag 1 bag IV ONETIME metroNIDAZOLE/Normal Saline [Flagyl in NS 500 MG/100 ML] 500 mg Premix Bag 1 bag IV ONETIME - Assessment/Plan Last 24 Hours: My Active Orders 07/12/21 19:30 Sodium Chloride 0.9% [Saline Flush] 10 ml FLUSH ASDIRECTED PRN Sodium Chloride 0.9% [Saline Flush] 2.5 ml FLUSH ASDIRECTED PRN Saline Lock Insert [OM.PC] Stat 07/12/21 21:07 Abdomen Ltd [US] Stat 07/12/21 22:10 Levofloxacin/Dextrose 5%-Water [Levaquin in D5W 750 MG/150 ML] 750 mg Premix Bag 1 bag IV ONETIME metroNIDAZOLE/Normal Saline [Flagyl in NS 500 MG/100 ML] 500 mg Premix Bag 1 bag IV ONETIME
[2021-07-12] MEDS ORDERED: metroNIDAZOLE/Normal Saline 500 MG in Premix Bag 1 BAG IV ONE (22:10)
[2021-07-12] MEDS ORDERED: Levofloxacin/Dextrose 5%-Water 750 MG in Premix Bag 1 BAG IV ONE (22:10)
--- NOTE | 2021-07-12 22:41 | US ---
INDICATION: Elevated liver function tests. Abnormal CT exam. TECHNIQUE: Ultrasound abdomen limited. Sonographic images of the right upper quadrant were obtained using green-scale and color Doppler images. COMPARISON: None. FINDINGS: Liver: Normal in size and echotexture. No masses. No intrahepatic biliary dilatation. Gallbladder: No stones or sludge. Wall is thickened measuring 5 mm. Common bile duct: 3 mm. Pancreas: Not visualized secondary to bowel gas. Right kidney: Normal in size. Normal echotexture and cortex. No suspicious masses, stones, or hydronephrosis. IMPRESSION: Gallbladder wall is thickened suggesting cholecystitis. However, there are no stones or sludge and no biliary dilatation. Acalculous cholecystitis must be considered. Dictated by Nick Blanco MD @ 07/12/2021 10:39:20 PM (Electronically Signed)
== END 2021-07-13 01:11 ==
LOC: MW.ED 19:05
DX: S72.001A Fracture of unspecified part of neck of right femur, initial encounter for closed fracture (principal); K81.0 Acute cholecystitis; F03.90 Unspecified dementia, unspecified severity, without behavioral disturbance, psychotic disturbance, mood disturbance, and anxiety; E78.00 Pure hypercholesterolemia, unspecified; M19.90 Unspecified osteoarthritis, unspecified site; Z88.0 Allergy status to penicillin; Z88.8 Allergy status to other drugs, medicaments and biological substances; Z88.2 Allergy status to sulfonamides; Z79.82 Long term (current) use of aspirin; Z79.899 Other long term (current) drug therapy; Z20.822 Contact with and (suspected) exposure to COVID-19; W19.XXXA Unspecified fall, initial encounter
CPT/HCPCS: 0240U; 36415; 70450; 71045; 72125; 74176; 76705; 80053; 81001; 83735; 85025; 93005; 96365; 96368; 96375; 99285; J1956; J2405; J3490; J7030